=== PATIENT | male | born 1985 | race American Indian/Alaskan Native ===

== ENCOUNTER 2017-07-08 11:07 | Emergency (ER) | payer OTHER ==
[2017-07-08 11:31] VITALS: BP 131/93
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
[2017-07-08] MEDS ORDERED: TORADOL IM ONE (12:18)
[2017-07-08] MEDS ORDERED: TORADOL ONE (12:25)
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
== END 2017-07-08 14:12 | disposition home or self-care (01) ==
LOC: ED 11:07
DX: M25.512 Pain in left shoulder (principal); V43.52XA Car driver injured in collision with other type car in traffic accident, initial encounter; Y93.89 Activity, other specified; Y92.89 Other specified places as the place of occurrence of the external cause; Y99.8 Other external cause status
CPT/HCPCS: 73030; 73090; 96372; 99284; J1885